=== PATIENT | male | born 2000 | race African-American/Black ===

== ENCOUNTER 2021-08-16 09:25 | Emergency (ER) | payer OTHER ==
[~2021-08-16] VITALS: Ht 177.8 cm; Wt 56.4 kg
[2021-08-16 10:50] VITALS: BP 112/64
[2021-08-16] MEDS ORDERED: HYDROCODONE/ACETAMINOPHEN 5-325 MG TABLET PO ONE (11:30)
[2021-08-16] MEDS ORDERED: CEPHALEXIN MONOHYDRATE 500 MG CAPSULE PO ONE (11:30)
[2021-08-16] MEDS ORDERED: SULFAMETHOX/TRIMETH DS 800-160 MG/TABLET PO ONE (11:30)
[2021-08-16] MEDS ORDERED: SULF-261 PO (11:57)
[2021-08-16] MEDS ORDERED: CEPH-558 PO (11:57)
[2021-08-16] MEDS ORDERED: IBUP-2070 PO (11:57)
== END 2021-08-16 12:04 | disposition home or self-care (01) ==
LOC: EMS 09:29
DX: J34.89 Other specified disorders of nose and nasal sinuses (principal)
CPT/HCPCS: 99284; Z7502; Z7610